=== PATIENT | male | born 1970 | race Caucasian/White ===

== ENCOUNTER 2022-12-09 16:16 | Inpatient (IN) | payer BC, SELFPAY ==
[2022-12-09 17:07] LABS: #Basophils 0.1 10x3/uL (0.0-0.2); #Eosinphils 0.1 10x3/uL (0.0-0.5); #Monocytes 0.9 10x3/uL (0.0-1.1); #Neutrophils 3.5 10x3/uL (1.5-8.4); %Basophils 1.1 % (0.0-2.0); %Lymphocytes 30.1 % (18.0-47.0); %Monocytes 13.4 % (0.0-10.0); %Neutrophils 53.1 % (40.0-75.0); Hemoglobin 19.4 g/dL (13.5-17.5); Mean Corpuscular HGB CONC 31.7 g/dL (32.0-36.0); Mean Corpuscular Hemoglobin 28.5 pg (27.0-33.0); Mean Corpuscular Volume 89.9 fl (81.2-95.1); Mean Platelet Volume 10.6 fl (7.4-10.4); Platelet Count 146 10x3/uL (150-450); RBC Distribution Width 19.9 % (11.5-14.5); Red Blood Cell (RBC) Count 6.81 10x6/uL (4.32-5.72); White Blood Cell (WBC) Count 6.5 10x3/uL (3.5-10.5)
[2022-12-09 17:13] LABS: ALT (SGPT) 13 U/L (8-55); AST (SGOT) 18 U/L (5-34); Albumin 3.2 g/dL (3.5-5.0); Alkaline Phosphatase 91 U/L (40-110); Anion Gap 15 mmol/L (10-20); BUN (Urea Nitrogen) 14 mg/dL (8.4-25.7); Bilirubin, Total 0.3 mg/dL (0.2-1.2); Calc. Creatinine Clearance 0 mL/min (70-130); Calcium 8.4 mg/dL (7.8-10.44); Carbon Dioxide 32 mmol/L (22-29); Chloride 98 mmol/L (98-107); Estimated GFR 67; Globulin 2.9 g/dL (2.4-3.5); Glucose 267 mg/dL (70-105); Potassium 5.1 mmol/L (3.5-5.1); Protein, Total 6.1 g/dL (6.0-8.3); Sodium 140 mmol/L (136-145)
[2022-12-09 17:35] LABS: CKMB 4.4 ng/mL (0-6.6)
[2022-12-09] MEDS ORDERED: Aspirin Chewable 81 MG TAB ONE (18:18)
[2022-12-09] MEDS ORDERED: Ondansetron PF 4 MG/2 ML Vial IVP PRN (20:21)
[2022-12-09] MEDS ORDERED: Acetaminophen 325 MG TAB PO PRN (20:21)
[2022-12-09] MEDS ORDERED: Dextrose 50% Abboject 50 ML SYRINGE SLOW IVP PRN (20:24)
[2022-12-09] MEDS ORDERED: HumaLOG 300 UNITS/3 ML VIAL SC PRN (20:24)
[2022-12-09] MEDS ORDERED: Dextrose 5% in Water 1,000 ML IV PRN (20:24)
[2022-12-09 20:32] LABS: Troponin I 0.234 ng/mL (< 0.028)
[2022-12-09] MEDS ORDERED: Furosemide 20 MG/2 ML VIAL SLOW IVP SCH (21:30)
[2022-12-09] MEDS: Ipratropium Bromide 0.06% Nasal Inhaler 15ml EA NARE SCH (23:00)
[2022-12-09] MEDS ORDERED: Furosemide 40 MG/4 ML VIAL ONE (23:06)
[2022-12-09 23:20] LABS: Troponin I 0.247 ng/mL (< 0.028)
[2022-12-10] MEDS ORDERED: Ventolin HFA Inhaler 60 PUFF INHALER ONE (01:29)
[2022-12-10] MEDS: Ventolin HFA Inhaler 60 PUFF INHALER INH SCH ×4 (01:30→20:32)
[2022-12-10 03:43] LABS: #Eosinphils 0.2 10x3/uL (0.0-0.5); #Monocytes 1.1 10x3/uL (0.0-1.1); #Neutrophils 4.5 10x3/uL (1.5-8.4); %Basophils 0.5 % (0.0-2.0); %Eosinophils 2.6 % (0.0-6.0); %Lymphocytes 29.7 % (18.0-47.0); %Monocytes 13.5 % (0.0-10.0); %Neutrophils 53.6 % (40.0-75.0); Hemoglobin 19.3 g/dL (13.5-17.5); Mean Corpuscular HGB CONC 31.3 g/dL (32.0-36.0); Mean Corpuscular Hemoglobin 28.5 pg (27.0-33.0); Mean Corpuscular Volume 91.1 fl (81.2-95.1); Mean Platelet Volume 11.5 fl (7.4-10.4); Platelet Count 145 10x3/uL (150-450); RBC Distribution Width 19.8 % (11.5-14.5); Red Blood Cell (RBC) Count 6.77 10x6/uL (4.32-5.72); White Blood Cell (WBC) Count 8.4 10x3/uL (3.5-10.5)
[2022-12-10 04:11] LABS: Anion Gap 18 mmol/L (10-20); BUN (Urea Nitrogen) 17 mg/dL (8.4-25.7); Calc. Creatinine Clearance 0 mL/min (70-130); Calcium 9.5 mg/dL (7.8-10.44); Carbon Dioxide 30 mmol/L (22-29); Cardiac Risk 3.7 (Less than 4.5); Chloride 97 mmol/L (98-107); Cholesterol 198 mg/dl (< 200 Desired); Estimated GFR 79; Glucose 325 mg/dL (70-105); HDL Cholesterol 54 mg/dL (>60 Neg Risk); LDL Cholesterol, Calculated 110 mg/dL; Sodium 140 mmol/L (136-145); Triglycerides 168 mg/dL (Less than 150)
[2022-12-10 04:22] LABS: Potassium 5.1 mmol/L (3.5-5.1)
[2022-12-10] MEDS ORDERED: Furosemide 40 MG/4 ML VIAL ONE (06:07)
[2022-12-10] MEDS: HumaLOG 300 UNITS/3 ML VIAL SC PRN ×3 (06:18→18:08)
[2022-12-10] MEDS: Furosemide 20 MG/2 ML VIAL SLOW IVP SCH ×2 (06:20→15:23)
[2022-12-10 09:20] LABS: SARS-CoV-2 NAA Rapid Test Not Detected (NotDetected)
[2022-12-10 10:14] LABS: Bilirubin Neg (Negative); Blood, Urine Negative (Negative); Clarity Clear (Clear); Glucose, Urine (Dipstick) Normal (Negative); Ketone, Urine Negative (Negative); Leukocyte Negative (Negative); Nitrite Negative (Negative); Protein, Urine (Dipstick) 100 mg/dl (Neg-Trace); Urobilinogen Normal mg/dL (Less than 2); pH, Urine 6.5 (5.0-9.0)
[2022-12-10 10:22] LABS: Bacteria/HPF None Seen HPF (None Seen); CAUTI Indications for Culture Dysuria,urgency,freq; RBC/HPF 0-3 HPF (0-3); Squamous Epithelial None Seen HPF (0-3); WBC/HPF None Seen HPF (0-3)
[2022-12-10 10:23] LABS: Urine Culture Reflex No No
[2022-12-10 10:24] LABS: Amphetamine Not Detected (NotDetected); Barbiturates Screen Not Detected (NotDetected); Benzodiazepine Screen Not Detected (NotDetected); Cocaine Metabolite Screen Not Detected (NotDetected); Methadone Not Detected (NotDetected); Methamphetamine Not Detected (NotDetected); Opiate Screen Not Detected (NotDetected); Oxycodone Screen Not Detected (NotDetected); Phencyclidine (PCP) Not Detected (NotDetected); THC/Cannabinoid Screen Not Detected (NotDetected); Tricyclic Screen Not Detected (NotDetected)
[2022-12-10 13:38] LABS: Hemoglobin A1c 9.4 % (4.0-6.0)
[2022-12-10 13:51] VITALS: BMI 27.5
[2022-12-10] MEDS ORDERED: Nicotine 21 MG PATCH TD SCH (18:15)
[2022-12-10] MEDS: Atorvastatin Calcium 40 MG TAB PO SCH (21:51)
[2022-12-11] MEDS: Ventolin HFA Inhaler 60 PUFF INHALER INH SCH ×2 (00:50→08:29)
[2022-12-11] MEDS: ALPRAZolam 0.5 MG TAB PO PRN ×2 (01:48→21:55)
[2022-12-11 06:08] LABS: #Eosinphils 0.1 10x3/uL (0.0-0.5); #Monocytes 1.1 10x3/uL (0.0-1.1); #Neutrophils 4.3 10x3/uL (1.5-8.4); %Basophils 0.5 % (0.0-2.0); %Eosinophils 1.2 % (0.0-6.0); %Lymphocytes 30.7 % (18.0-47.0); %Neutrophils 53.5 % (40.0-75.0); Hemoglobin 18.8 g/dL (13.5-17.5); Mean Corpuscular HGB CONC 31.8 g/dL (32.0-36.0); Mean Corpuscular Hemoglobin 28.7 pg (27.0-33.0); Mean Corpuscular Volume 90.4 fl (81.2-95.1); Mean Platelet Volume 11.3 fl (7.4-10.4); Platelet Count 134 10x3/uL (150-450); RBC Distribution Width 19.3 % (11.5-14.5); Red Blood Cell (RBC) Count 6.54 10x6/uL (4.32-5.72)
[2022-12-11 06:18] LABS: Anion Gap 12 mmol/L (10-20); BUN (Urea Nitrogen) 17 mg/dL (8.4-25.7); Calc. Creatinine Clearance 156 mL/min (70-130); Calcium 8.8 mg/dL (7.8-10.44); Carbon Dioxide 33 mmol/L (22-29); Chloride 96 mmol/L (98-107); Estimated GFR 108; Magnesium 1.8 mg/dL (1.6-2.6); Potassium 4.4 mmol/L (3.5-5.1); Sodium 137 mmol/L (136-145)
[2022-12-11 06:21] LABS: Glucose 149 mg/dL (70-105)
[2022-12-11] MEDS: Furosemide 20 MG/2 ML VIAL SLOW IVP SCH (06:50)
[2022-12-11] MEDS: Ipratropium Bromide 0.06% Nasal Inhaler 15ml EA NARE SCH ×3 (07:32→15:55)
[2022-12-11] MEDS: Aspirin 81 mg Enteric Coated Tablet PO SCH (10:13)
[2022-12-11] MEDS: HumaLOG 300 UNITS/3 ML VIAL SC PRN ×2 (11:51→22:06)
[2022-12-11] MEDS ORDERED: Furosemide 20 MG/2 ML VIAL SLOW IVP SCH (14:00)
[2022-12-11] MEDS ORDERED: Furosemide 40 MG TAB PO SCH (14:00)
[2022-12-11] MEDS: Ipratropium/Albuterol 3 ML NEB NEB SCH ×3 (15:03→23:14)
[2022-12-11] MEDS: glipiZIDE 5 MG TAB PO SCH (15:54)
[2022-12-11] MEDS ORDERED: NPH, Human Insulin Isophane 300 UNIT/3 ML VIAL SC SCH (16:15)
[2022-12-11] MEDS ORDERED: Insulin NPH Human Isophane 100 UNIT/ML (10 ML VIAL) SC SCH (17:00)
[2022-12-11] MEDS: Budesonide 0.5 MG/2 ML NEB NEB SCH (20:03)
[2022-12-11] MEDS ORDERED: Losartan 25 MG TAB PO SCH ×2 (21:00)
[2022-12-11] MEDS: Atorvastatin Calcium 40 MG TAB PO SCH (21:55)
[2022-12-11] MEDS ORDERED: Nicotine 21 MG PATCH TD SCH (23:59)
[2022-12-12] MEDS: Ipratropium/Albuterol 3 ML NEB NEB SCH ×4 (03:10→14:28)
[2022-12-12 06:27] LABS: Anion Gap 12 mmol/L (10-20); BUN (Urea Nitrogen) 20 mg/dL (8.4-25.7); Calc. Creatinine Clearance 143 mL/min (70-130); Calcium 8.8 mg/dL (7.8-10.44); Carbon Dioxide 37 mmol/L (22-29); Chloride 95 mmol/L (98-107); Estimated GFR 105; Glucose 171 mg/dL (70-105); Magnesium 1.8 mg/dL (1.6-2.6); Potassium 4.3 mmol/L (3.5-5.1); Sodium 140 mmol/L (136-145)
[2022-12-12 07:15] LABS: #Eosinphils 0.2 10x3/uL (0.0-0.5); #Neutrophils 3.2 10x3/uL (1.5-8.4); %Basophils 0.6 % (0.0-2.0); %Eosinophils 2.1 % (0.0-6.0); %Lymphocytes 37.9 % (18.0-47.0); %Monocytes 14.4 % (0.0-10.0); %Neutrophils 44.7 % (40.0-75.0); Hemoglobin 18.5 g/dL (13.5-17.5); Mean Corpuscular HGB CONC 31.7 g/dL (32.0-36.0); Mean Corpuscular Hemoglobin 28.5 pg (27.0-33.0); Mean Corpuscular Volume 90.1 fl (81.2-95.1); Mean Platelet Volume 11.2 fl (7.4-10.4); Platelet Count 124 10x3/uL (150-450); RBC Distribution Width 19.2 % (11.5-14.5); Red Blood Cell (RBC) Count 6.48 10x6/uL (4.32-5.72); White Blood Cell (WBC) Count 7.2 10x3/uL (3.5-10.5)
[2022-12-12] MEDS: Budesonide 0.5 MG/2 ML NEB NEB SCH (07:25)
[2022-12-12] MEDS ORDERED: Electrolyte Replacement Protocol 1 EACH FS SCH (07:45)
[2022-12-12] MEDS: Ipratropium Bromide 0.06% Nasal Inhaler 15ml EA NARE SCH ×2 (09:00→13:00)
[2022-12-12] MEDS ORDERED: Magnesium 2 GM/50 ML(in water) 2 GM in Premix Bag 1 BAG IVPB SCH (09:00)
[2022-12-12] MEDS ORDERED: Insulin NPH Human Isophane 100 UNIT/ML (10 ML VIAL) SC SCH ×2 (09:00→17:00)
[2022-12-12] MEDS: glipiZIDE 5 MG TAB PO SCH (11:41)
[2022-12-12] MEDS: ALPRAZolam 0.5 MG TAB PO PRN (11:41)
[2022-12-12] MEDS: Aspirin 81 mg Enteric Coated Tablet PO SCH (11:43)
[2022-12-12] MEDS ORDERED: Nicotine 21 MG PATCH TD SCH (12:00)
[2022-12-12] MEDS ORDERED: HumaLOG 300 UNITS/3 ML VIAL SC PRN (12:04)
[2022-12-12 17:53] VITALS: BP 113/54; TEMP 98.1
[2022-12-12] MEDS ORDERED: Senokot S 8.6-50 MG TAB PO SCH (21:00)
[2022-12-13] MEDS ORDERED: Furosemide 40 MG TAB PO SCH (07:30)
== END 2022-12-12 17:20 | disposition home or self-care (01) | DRG 280 ==
LOC: CSHERS 16:16 → CSHERHOLD 23:44 → CSHTELE 12-10 13:31
PROVIDERS: ADMIT Internal Medicine; ATTEND Internal Medicine
DX: I11.0 Hypertensive heart disease with heart failure (principal); I50.33 Acute on chronic diastolic (congestive) heart failure; I21.A1 Myocardial infarction type 2; J96.01 Acute respiratory failure with hypoxia; J44.1 Chronic obstructive pulmonary disease with (acute) exacerbation; D75.1 Secondary polycythemia; F17.210 Nicotine dependence, cigarettes, uncomplicated; F32.A Depression, unspecified; F41.9 Anxiety disorder, unspecified; E11.65 Type 2 diabetes mellitus with hyperglycemia; Z20.822 Contact with and (suspected) exposure to COVID-19
CPT/HCPCS: 36415; 36416; 71045; 80048; 80053; 80061; 80306; 81001; 82553; 83036; 83735; 83880; 84443; 84484; 85025; 85379; 93005; 93306; 94640; 94664; 94760; 94762; J1650; J1815; J1940; J7620; J7626; U0002

== ENCOUNTER 2025-04-04 21:54 | Inpatient (IN) | payer OTHER ==
[2025-04-04] MEDS ORDERED: Magnesium 2 GM/50 ML BAG (IN WATER) ONE (22:10)
[2025-04-04 22:36] LABS: #Basophils Less than 0.03 10x3/uL (0.0-0.2); #Eosinophils 0.05 10x3/uL (0.0-0.5); #Monocytes 1.10 10x3/uL (0.0-1.1); #Neutrophils 5.60 10x3/uL (1.5-8.4); %Basophils 0.2 % (0.0-2.0); %Eosinophils 0.6 % (0.0-6.0); %Lymphocytes 16.4 % (18.0-47.0); %Monocytes 13.5 % (0.0-10.0); %Neutrophils 69.1 % (40.0-75.0); Hematocrit 49.2 % (38.8-50.0); Hemoglobin 15.4 g/dL (13.5-17.5); Mean Corpuscular Hemoglobin 29.3 pg (27.0-33.0); Mean Corpuscular Volume 93.5 fL (81.2-95.1); Platelet Count 147 10x3/uL (150-450); Red Blood Cell (RBC) Count 5.26 10x6/uL (4.32-5.72); White Blood Cell (WBC) Count 8.12 10x3/uL (3.5-10.5)
[2025-04-04 22:45] LABS: ALT (SGPT) 27 U/L (Less than 45); AST (SGOT) 25 U/L (11-34); Albumin 3.0 g/dL (3.1-4.5); Alkaline Phosphatase 127 U/L (40-110); Anion Gap 13 mmol/L (10-20); BUN (Urea Nitrogen) 18 mg/dL (8.4-25.7); Bilirubin, Total 0.3 mg/dL (0.3-1.2); Calc. Creatinine Clearance 0 mL/min (70-130); Calcium 8.5 mg/dL (7.8-10.44); Carbon Dioxide 28 mmol/L (22-29); Chloride 102 mmol/L (98-107); Globulin 3.5 g/dL (2.4-3.5); Glucose 390 mg/dL (70-105); Potassium 5.1 mmol/L (3.5-5.1); Sodium 138 mmol/L (136-145)
[2025-04-04 22:59] LABS: Troponin I 0.344 ng/mL (< 0.028)
[2025-04-04] MEDS ORDERED: Nitroglycerin 2% Ointment 1 INCH/1 GM Packet ONE (23:17)
[2025-04-04] MEDS ORDERED: Furosemide 40 MG (4 mL) VIAL ONE (23:17)
[2025-04-04] MEDS ORDERED: Aspirin Chewable 81 MG TAB ONE (23:18)
[2025-04-05] MEDS ORDERED: Dextrose 50% Abboject 50 ML SYRINGE SLOW IVP PRN (01:50)
[2025-04-05] MEDS ORDERED: Glucagon 1 MG/ML KIT IM PRN (01:50)
[2025-04-05] MEDS: cefTRIAXone\\ROCEPHIN 1 GM in Sodium Chloride 0.9% 100 ML IVPB SCH (02:16)
[2025-04-05 03:20] LABS: #Basophils Less than 0.03 10x3/uL (0.0-0.2); #Eosinophils Less than 0.03 10x3/uL (0.0-0.5); #Monocytes 0.27 10x3/uL (0.0-1.1); #Neutrophils 8.07 10x3/uL (1.5-8.4); %Basophils 0.1 % (0.0-2.0); %Eosinophils 0.1 % (0.0-6.0); %Lymphocytes 4.9 % (18.0-47.0); %Monocytes 3.1 % (0.0-10.0); %Neutrophils 91.3 % (40.0-75.0); Hematocrit 47.0 % (38.8-50.0); Hemoglobin 14.8 g/dL (13.5-17.5); Mean Corpuscular Hemoglobin 29.3 pg (27.0-33.0); Mean Corpuscular Volume 93.1 fL (81.2-95.1); Platelet Count 143 10x3/uL (150-450); Red Blood Cell (RBC) Count 5.05 10x6/uL (4.32-5.72); White Blood Cell (WBC) Count 8.83 10x3/uL (3.5-10.5)
[2025-04-05 03:41] LABS: ALT (SGPT) 23 U/L (Less than 45); AST (SGOT) 21 U/L (11-34); Albumin 3.0 g/dL (3.1-4.5); Alkaline Phosphatase 116 U/L (40-110); Anion Gap 16 mmol/L (10-20); BUN (Urea Nitrogen) 17 mg/dL (8.4-25.7); Bilirubin, Total 0.2 mg/dL (0.3-1.2); Calc. Creatinine Clearance 171 mL/min (70-130); Calcium 8.5 mg/dL (7.8-10.44); Carbon Dioxide 28 mmol/L (22-29); Cardiac Risk 3.2 (Less than 4.5); Chloride 102 mmol/L (98-107); Cholesterol 163 mg/dl (< 200 Desired); Globulin 3.7 g/dL (2.4-3.5); Glucose 372 mg/dL (70-105); HDL Cholesterol 51 mg/dL (>60 Neg Risk); LDL Cholesterol, Calculated 99 mg/dL; Magnesium 2.0 mg/dL (1.6-2.6); Potassium 4.6 mmol/L (3.5-5.1); Sodium 141 mmol/L (136-145); Triglycerides 64 mg/dL (Less than 150)
[2025-04-05 04:07] LABS: Troponin I 0.288 ng/mL (< 0.028)
[2025-04-05 07:08] LABS: Critical Call Chem Troponin I SJOS.KDZ@0707; Troponin I 0.256 ng/mL (< 0.028)
[2025-04-05] MEDS: Furosemide 40 MG (4 mL) VIAL SLOW IVP SCH (07:48)
[2025-04-05] MEDS ORDERED: Electrolyte Replacement Protocol 1 EACH FS SCH (08:30)
[2025-04-05 08:50] LABS: Actual Bicarbonate (HCO3v) 28.5 mEq/L (22-28); Analyzer IN Cardio CS ICU; Base Excess -0.6 mEq/L (-2 - +2); Calcium, Ionized (venous) 1.16 mmol/L (1.16-1.32); Chloride (VBG) 99 mmol/L (98-106); Hematocrit-VBG 47 % (42.0-52.0); Hemoglobin (Hb) 16.0 g/dL (13.1-17.2); Potassium (VBG) 4.66 mmol/L (3.70-5.30); Puncture Site Other Site; RapidComm Collect By LAB; Sodium 138 mmol/L (133-146)
[2025-04-05] MEDS: predniSONE 20 MG TAB PO SCH (09:09)
[2025-04-05] MEDS: Enoxaparin 40 MG (0.4 mL) SYRINGE SC SCH (09:11)
[2025-04-05] MEDS: Lisinopril 5 MG TAB PO SCH (11:25)
[2025-04-05] MEDS: Carvedilol 6.25 MG TAB PO SCH ×2 (11:25→17:12)
[2025-04-05 12:38] LABS: Actual Bicarbonate (HCO3v) 35.6 mEq/L (22-28); Analyzer IN Cardio CS ICU; Base Excess 3.7 mEq/L (-2 - +2); Calcium, Ionized (venous) 1.16 mmol/L (1.16-1.32); Chloride (VBG) 98 mmol/L (98-106); Critical Notified Whom: RAFAEL, RN; Hematocrit-VBG 48 % (42.0-52.0); Hemoglobin (Hb) 16.2 g/dL (13.1-17.2); Potassium (VBG) 5.65 mmol/L (3.70-5.30); Puncture Site Other Site; RapidComm Collect By LAB; Sodium 140 mmol/L (133-146)
[2025-04-05] MEDS: Magnesium 2 GM/50 ML(in water) 2 GM in Premix 1 BAG IVPB SCH (14:10)
[2025-04-05 16:32] LABS: Actual Bicarbonate (HCO3v) 38.5 mEq/L (22-28); Analyzer IN Cardio CS ICU; Base Excess 7.4 mEq/L (-2 - +2); Calcium, Ionized (venous) 1.16 mmol/L (1.16-1.32); Chloride (VBG) 94 mmol/L (98-106); Critical Notified By: Udy, RRT; Critical Notified Whom: Rafael, RN; Hematocrit-VBG 46 % (42.0-52.0); Hemoglobin (Hb) 15.8 g/dL (13.1-17.2); Potassium (VBG) 5.56 mmol/L (3.70-5.30); Puncture Site Other Site; RapidComm Collect By LAB; Sodium 139 mmol/L (133-146)
[2025-04-06 05:48] LABS: Magnesium 2.2 mg/dL (1.6-2.6)
[2025-04-06 08:54] LABS: #Basophils Less than 0.03 10x3/uL (0.0-0.2); #Eosinophils 0.06 10x3/uL (0.0-0.5); #Monocytes 0.95 10x3/uL (0.0-1.1); #Neutrophils 6.69 10x3/uL (1.5-8.4); %Basophils 0.1 % (0.0-2.0); %Eosinophils 0.6 % (0.0-6.0); %Lymphocytes 19.2 % (18.0-47.0); %Monocytes 9.9 % (0.0-10.0); %Neutrophils 69.9 % (40.0-75.0); Hematocrit 48.4 % (38.8-50.0); Hemoglobin 14.8 g/dL (13.5-17.5); Mean Corpuscular Hemoglobin 29.0 pg (27.0-33.0); Mean Corpuscular Volume 94.9 fL (81.2-95.1); Platelet Count 146 10x3/uL (150-450); Red Blood Cell (RBC) Count 5.10 10x6/uL (4.32-5.72); White Blood Cell (WBC) Count 9.58 10x3/uL (3.5-10.5)
[2025-04-06 09:07] LABS: Anion Gap 12 mmol/L (10-20); BUN (Urea Nitrogen) 35 mg/dL (8.4-25.7); Calc. Creatinine Clearance 111 mL/min (70-130); Calcium 8.8 mg/dL (7.8-10.44); Carbon Dioxide 37 mmol/L (22-29); Chloride 99 mmol/L (98-107); Glucose 155 mg/dL (70-105); Potassium 4.5 mmol/L (3.5-5.1); Sodium 143 mmol/L (136-145)
[2025-04-06 09:26] LABS: Actual Bicarbonate (HCO3v) 34.2 mEq/L (22-28); Analyzer IN Cardio CS ER; Base Excess 2.8 mEq/L (-2 - +2); Calcium, Ionized (venous) 1.18 mmol/L (1.16-1.32); Chloride (VBG) 98 mmol/L (98-106); Critical Notified By: Udy, RRT; Critical Notified Whom: Tracey, RN; Hematocrit-VBG 46 % (42.0-52.0); Hemoglobin (Hb) 15.8 g/dL (13.1-17.2); Potassium (VBG) 4.35 mmol/L (3.70-5.30); Puncture Site Other Site; RapidComm Collect By LAB; Sodium 141 mmol/L (133-146)
[2025-04-06] MEDS: Lisinopril 5 MG TAB PO SCH (09:46)
[2025-04-06] MEDS: predniSONE 20 MG TAB PO SCH (09:46)
[2025-04-06] MEDS: Lantus 1000 UNITS/10 ML VIAL SC SCH (09:47)
[2025-04-07 05:00] LABS: Anion Gap 16 mmol/L (10-20); BUN (Urea Nitrogen) 34 mg/dL (8.4-25.7); Calc. Creatinine Clearance 102 mL/min (70-130); Calcium 8.3 mg/dL (7.8-10.44); Carbon Dioxide 35 mmol/L (22-29); Chloride 94 mmol/L (98-107); Glucose 284 mg/dL (70-105); Potassium 5.5 mmol/L (3.5-5.1); Sodium 139 mmol/L (136-145)
[2025-04-07 08:39] LABS: #Basophils Less than 0.03 10x3/uL (0.0-0.2); #Eosinophils 0.07 10x3/uL (0.0-0.5); #Monocytes 1.06 10x3/uL (0.0-1.1); #Neutrophils 5.39 10x3/uL (1.5-8.4); %Basophils 0.2 % (0.0-2.0); %Eosinophils 0.8 % (0.0-6.0); %Lymphocytes 25.6 % (18.0-47.0); %Monocytes 12.0 % (0.0-10.0); %Neutrophils 61.1 % (40.0-75.0); Hematocrit 50.4 % (38.8-50.0); Hemoglobin 15.3 g/dL (13.5-17.5); Mean Corpuscular Hemoglobin 28.9 pg (27.0-33.0); Mean Corpuscular Volume 95.3 fL (81.2-95.1); Platelet Count 163 10x3/uL (150-450); Red Blood Cell (RBC) Count 5.29 10x6/uL (4.32-5.72); White Blood Cell (WBC) Count 8.83 10x3/uL (3.5-10.5)
[2025-04-07] MEDS: predniSONE 20 MG TAB PO SCH (09:52)
[2025-04-07] MEDS: LOKELMA 10 GM PACKET PO SCH (09:55)
[2025-04-07] MEDS: Lantus 1000 UNITS/10 ML VIAL SC SCH ×2 (09:58→22:16)
[2025-04-07] MEDS: Carvedilol 6.25 MG TAB PO SCH (10:44)
[2025-04-07 15:39] LABS: Chloride 93 mmol/L (98-107); Potassium 4.8 mmol/L (3.5-5.1); Sodium 135 mmol/L (136-145)
[2025-04-07 16:07] LABS: BUN (Urea Nitrogen) 29 mg/dL (8.4-25.7); Calc. Creatinine Clearance 148 mL/min (70-130); Calcium 8.3 mg/dL (7.8-10.44); Glucose 212 mg/dL (70-105)
[2025-04-07 16:24] LABS: Anion Gap 10 mmol/L (10-20); Carbon Dioxide 37 mmol/L (22-29)
[2025-04-07] MEDS: Carvedilol 12.5 MG TAB PO SCH (17:10)
[2025-04-08 05:08] VITALS: BMI 31.6
[2025-04-08 05:48] LABS: BUN (Urea Nitrogen) 28 mg/dL (8.4-25.7); Calc. Creatinine Clearance 167 mL/min (70-130); Calcium 8.3 mg/dL (7.8-10.44); Glucose 100 mg/dL (70-105)
[2025-04-08 05:58] LABS: Anion Gap 10 mmol/L (10-20); Carbon Dioxide 36 mmol/L (22-29); Chloride 95 mmol/L (98-107); Potassium 4.1 mmol/L (3.5-5.1); Sodium 137 mmol/L (136-145)
[2025-04-08] MEDS: Lantus 1000 UNITS/10 ML VIAL SC SCH (10:08)
[2025-04-09 03:41] LABS: #Basophils Less than 0.03 10x3/uL (0.0-0.2); #Eosinophils 0.08 10x3/uL (0.0-0.5); #Monocytes 0.95 10x3/uL (0.0-1.1); #Neutrophils 3.92 10x3/uL (1.5-8.4); %Basophils 0.3 % (0.0-2.0); %Eosinophils 1.1 % (0.0-6.0); %Lymphocytes 30.6 % (18.0-47.0); %Monocytes 13.2 % (0.0-10.0); %Neutrophils 54.5 % (40.0-75.0); Hematocrit 46.2 % (38.8-50.0); Hemoglobin 14.6 g/dL (13.5-17.5); Mean Corpuscular Hemoglobin 29.3 pg (27.0-33.0); Mean Corpuscular Volume 92.6 fL (81.2-95.1); Platelet Count 161 10x3/uL (150-450); Red Blood Cell (RBC) Count 4.99 10x6/uL (4.32-5.72); White Blood Cell (WBC) Count 7.19 10x3/uL (3.5-10.5)
[2025-04-09 03:50] LABS: BUN (Urea Nitrogen) 31 mg/dL (8.4-25.7); Calc. Creatinine Clearance 143 mL/min (70-130); Calcium 8.7 mg/dL (7.8-10.44); Glucose 321 mg/dL (70-105)
[2025-04-09 03:57] LABS: Anion Gap 13 mmol/L (10-20); Carbon Dioxide 37 mmol/L (22-29); Chloride 93 mmol/L (98-107); Potassium 4.5 mmol/L (3.5-5.1); Sodium 138 mmol/L (136-145)
[2025-04-09] MEDS: Furosemide 40 MG TAB PO SCH (08:27)
[2025-04-09 15:52] VITALS: BP 105/67; TEMP 98.3
[2025-04-09] MEDS ORDERED: Mometasone 200 MCG/Formoterol 5 MCG 60 PUFF INHALER INH SCH (18:30)
[2025-04-12 06:48] LABS: ALV-art Gradient 1.955 mmHg (0-20); Actual Bicarbonate (HCO3a) 31.9 mEq/L (22-28); Analyzer IN Cardio CS ER; Base Excess (BEa) 2.8 mEq/L (-2.0 to +3.0); CO2 Tension 68.7 mmHg (35.0-45.0); Calcium, Ionized (arterial) 1.19 mmol/L (1.12-1.30); Critical Notified By: s.Goolsby RRT; Hematocrit-ABG 47 % (42.0-52.0); Hemoglobin (Hb) 15.9 g/dL (14.0-18.0); O2 Tension (PaO2), arterial 61.9 mmHg (80.0-100.0); Potassium - ABG Lab 4.55 mmol/L (3.70-5.30); Puncture Site Right Radial artery; pH, Arterial 7.285 (7.35-7.45)
== END 2025-04-09 16:00 | disposition home or self-care (01) | DRG 280 ==
LOC: CSHERS 21:54 → CSHICU 04-05 00:35
PROVIDERS: ADMIT Hospitalist; ATTEND Hospitalist
PROC: 3E03329 Introduction of Other Anti-infective into Peripheral Vein, Percutaneous Approach (ICD-10-PCS; principal; 2025-04-05)
PROC: 5A09357 Assistance with Respiratory Ventilation, Less than 24 Consecutive Hours, Continuous Positive Airway Pressure (ICD-10-PCS; 2025-04-05)
DX: I11.0 Hypertensive heart disease with heart failure (principal); I50.43 Acute on chronic combined systolic (congestive) and diastolic (congestive) heart failure; I21.A1 Myocardial infarction type 2; J96.21 Acute and chronic respiratory failure with hypoxia; J96.22 Acute and chronic respiratory failure with hypercapnia; J44.1 Chronic obstructive pulmonary disease with (acute) exacerbation; F41.9 Anxiety disorder, unspecified; F32.A Depression, unspecified; I42.9 Cardiomyopathy, unspecified; D69.6 Thrombocytopenia, unspecified; F17.210 Nicotine dependence, cigarettes, uncomplicated; E11.65 Type 2 diabetes mellitus with hyperglycemia; Z98.890 Other specified postprocedural states; Z79.899 Other long term (current) drug therapy; Z79.51 Long term (current) use of inhaled steroids; Z91.148 Patient's other noncompliance with medication regimen for other reason; Z88.8 Allergy status to other drugs, medicaments and biological substances
CPT/HCPCS: 36415; 36416; 36600; 71045; 80048; 80053; 80061; 82805; 83036; 83735; 83880; 84145; 84443; 84484; 85025; 93005; 93010; 93306; 94640; 94660; 96365; 96375; J0696; J1650; J1815; J1940; J2919; J3475; J7512; J7620